=== PATIENT | female | born 1985 | race African-American/Black ===

== ENCOUNTER 2025-07-22 13:43 | Emergency (ER) | payer BC ==
[2025-07-22] MEDS ORDERED: Ketorolac Tromethamine 30 MG (1 mL) VIAL ONE (14:23)
== END 2025-07-22 14:42 | disposition home or self-care (01) ==
LOC: ERS 13:43
DX: M54.50 Low back pain, unspecified (principal); E03.9 Hypothyroidism, unspecified; Z79.890 Hormone replacement therapy
CPT/HCPCS: 96372; 99282; J1885

== ENCOUNTER 2025-08-30 07:33 | Outpatient (CLI) | payer BC | END 2025-08-30 07:34 | disposition home or self-care (01) | LOC: SCSMRI 07:33 | PROVIDERS: ATTEND Family Medicine | DX: M54.16 Radiculopathy, lumbar region (principal); M48.061 Spinal stenosis, lumbar region without neurogenic claudication | CPT/HCPCS: 72148 ==